=== PATIENT | female | born 1950 | race African-American/Black ===

== ENCOUNTER 2016-09-11 23:18 | Emergency (ER) | payer MEDICARE, BC ==
[~2016-09-11] VITALS: Ht 160 cm; Wt 88.0 kg
[~2016-09-11 23:18] MED LIST: ADLT ASA LOW81 MG PO; ALDACTONE25 MG PO; ALEVE220 M1 OR; ALLOPURINOL300 MG OR; ALLOPURINOL300 MG PO; ASPIRIN LOW DOS81 MG PO; AUGMENTIN875TAB PO; B12-ACTIVE1 MG PO; CARAFATE PO; CARVEDILOL25 MG PO; CITALOPRAM10 MG PO; COREG12.5 MG PO; CYANOCOBALAM1000 MCG IJ; CYANOCOBALAM1000 MCG IM; CYANOCOBALAM1000 MCG PO; D31000 UNIT PO; D32000 UNIT PO; DEXTROSE IV; DIOVAN HCT320 MG/25 OR; DIOVAN320 MG PO; DYAZIDE1 CAP OR; EXELON; FERR SULFATE325 MG PO; FERRAPLUS 90 PO; FLONASE NASAL50 MCG; FUROSEMIDE20 MG PO; HYCODAN1 ML OR; HYDROCHLOROT25 MG OR; KEFLEX500 MG PO; KLOR-CON M2020 MEQ PO; LASIX 20 MG TAB20 MG PO; LASIX 20 MG20 MG/TAB PO; LEVAQUIN750 MG PO; LEVOCETIRIZI OR; LIPITOR20 MG PO; MAG OXIDE400 MG PO; MAGNESIUM-OX400 MG PO; MEDDOSEPAK PO; METFORMIN500 MG PO; MILRINONE IV; MUCINEX600 MG OR; MUCINEX600 MG PO; NORVASC PO; OXYGEN; PERCOCET 5/325M1 TAB PO; PROTONIX20 MG PO; RANEXA500 MG PO; RANOLAZINE PO; SPIRONOLACT25 MG PO; SYMBICORT1 AE1 IN; TESSALON PER100 MG PO; TYLENOL # 31 TAB PO; VIT D PO; VITAMIN D2000 UNI1 PO; [UNRECOGNIZED DRUG - OTHER]
[2016-09-11] MEDS ORDERED: DOBUTAMINE IV (23:31)
[2016-09-11] MEDS ORDERED: SINEMET 25/1001 TAB PO (23:32)
[2016-09-11] MEDS ORDERED: VALIUM2 MG PO (23:32)
[2016-09-11] MEDS ORDERED: ONDANSETRON HCL4 MG PO (23:33)
[2016-09-12 01:20] VITALS: BP 127/71
== END 2016-09-12 01:20 | disposition home or self-care (01) ==
LOC: ED 23:18
DX: T82.528A Displacement of other cardiac and vascular devices and implants, initial encounter (principal); I11.0 Hypertensive heart disease with heart failure; I50.9 Heart failure, unspecified; Z95.810 Presence of automatic (implantable) cardiac defibrillator; Y83.8 Other surgical procedures as the cause of abnormal reaction of the patient, or of later complication, without mention of misadventure at the time of the procedure

== ENCOUNTER 2018-01-23 12:30 | Inpatient (IN) | payer MEDICARE, BC ==
[~2018-01-23] VITALS: Ht 160 cm; Wt 76.5 kg
[~2018-01-23 12:30] MED LIST changes: +DOBUTAMINE IV; +ONDANSETRON HCL4 MG PO; +SINEMET 25/1001 TAB PO; +VALIUM2 MG PO
[2018-01-23 13:27] LABS: HEMOGLOBIN 13.6 g/dl (12.0-16.0); IMMATURE GRANULOCYTES 0.3 % (0.0-5.0); MEAN CELL VOLUME 99.5 fL CALC (80.0-100.0); MEAN CORPUSCULAR HGB 32.2 pG CALC (26.0-32.0); MEAN CORPUSCULAR HGB CONC 32.4 g/L CALC (32.0-36.0); NEUT# 3.91 thou/uL (2.00-7.15); RED BLOOD COUNT 4.22 mill/uL (4.20-5.60); RED CELL DISTRI WIDTH 16.2 % (11.5-15.5)
[2018-01-23 13:48] LABS: BILIRUBIN, TOTAL 0.9 mg/dL (0.0-1.4); CREATININE 1.6 mg/dL (0.5-1.0); TOTAL PROTEIN 8.4 g/dL (6.3-8.2)
[2018-01-23 13:49] LABS: ALBUMIN 4.6 g/dL (3.2-5.0)
[2018-01-23 14:11] LABS: URINE BILIRUBIN - DIPSTICK NEGATIVE (NEGATIVE); URINE BLOOD DIPSTICK SMALL (NEGATIVE); URINE COLOR YELLOW; URINE GLUCOSE - DIPSTICK NEGATIVE (NEGATIVE); URINE KETONE TRACE mg/dL (NEGATIVE); URINE LEUK ESTERASE NEGATIVE (NEGATIVE); URINE NITRITE - DIPSTICK NEGATIVE (Negative); URINE PH 6.5 (4.5-8.0); URINE PROTEIN - DIPSTICK 100 mg/dL (NEG-TRACE); URINE UROBILINOGEN - DIPSTICK 0.2 E.U./dL (0.2)
[2018-01-23 14:16] LABS: URINE CLARITY CLEAR
[2018-01-23 14:25] LABS: INFLUENZA A NONE DETECTED (NONE DETECT); INFLUENZA B NONE DETECTED (NONE DETECT)
[2018-01-23 14:38] LABS: URINE SQUAMOUS EPITHELIAL CELL FEW EPI/hpf (0-FEW); URINE WBC 0-2 WBC/hpf (0-5)
[2018-01-23] MEDS ORDERED: OMEPRAZOLE20 MG PO (14:47)
[2018-01-23] MEDS ORDERED: MELOXICAM7.5 MG PO (14:47)
[2018-01-23] MEDS ORDERED: ISOSORB DIN30 MG PO (14:48)
[2018-01-23] MEDS ORDERED: LASIX 80 MG TAB80 M1 PO (14:48)
[2018-01-23] MEDS ORDERED: CILOSTAZOL50 MG PO (14:48)
[2018-01-23] MEDS ORDERED: PROCHLORPERAZINE5 MG PO (14:49)
[2018-01-23] MEDS ORDERED: FOLIC ACID1 MG PO (14:49)
[2018-01-23] MEDS ORDERED: CARVEDILOL3.125 MG PO (14:49)
[2018-01-23] MEDS ORDERED: K-TAB20 MEQ PO (14:50)
[2018-01-23] MEDS ORDERED: AMIODARONE200 MG PO (14:50)
[2018-01-23 19:15] VITALS: BP 165/89
[2018-01-23 21:00] VITALS: BP 141/84
[2018-01-23 22:00] VITALS: BP 174/90
[2018-01-23 23:00] VITALS: BP 152/77
[2018-01-24] VITALS (14 sets, daily range): BP systolic 149–173; BP diastolic 78–98
[2018-01-24 05:27] LABS: HEMATOCRIT 37.8 % (37.0-47.0); HEMOGLOBIN 12.8 g/dl (12.0-16.0); IMMATURE GRANULOCYTES 0.2 % (0.0-5.0); MEAN CELL VOLUME 97.9 fL CALC (80.0-100.0); MEAN CORPUSCULAR HGB 33.2 pG CALC (26.0-32.0); MEAN CORPUSCULAR HGB CONC 33.9 g/L CALC (32.0-36.0); NEUT# 3.67 thou/uL (2.00-7.15); RED BLOOD COUNT 3.86 mill/uL (4.20-5.60); RED CELL DISTRI WIDTH 15.9 % (11.5-15.5)
[2018-01-24 05:45] LABS: ALBUMIN 3.7 g/dL (3.2-5.0); BILIRUBIN, TOTAL 0.5 mg/dL (0.0-1.4); CREATININE 1.2 mg/dL (0.5-1.0); POTASSIUM 4.7 mmol/l (3.5-5.1)
[2018-01-24 05:54] LABS: TOTAL PROTEIN 6.6 g/dL (6.3-8.2)
== END 2018-01-24 16:03 | DRG 872 ==
LOC: ED 12:30 → ED-I 14:54 → ED 15:09 → ICU 15:10
PROVIDERS: Family Medicine; ADMIT Internal Medicine Nephrology; ATTEND Internal Medicine Nephrology
DX: A41.9 Sepsis, unspecified organism (principal); K80.00 Calculus of gallbladder with acute cholecystitis without obstruction; N17.9 Acute kidney failure, unspecified; I11.0 Hypertensive heart disease with heart failure; I50.9 Heart failure, unspecified; G20 Parkinson's disease; F02.80 Dementia in other diseases classified elsewhere, unspecified severity, without behavioral disturbance, psychotic disturbance, mood disturbance, and anxiety; M10.9 Gout, unspecified; M19.90 Unspecified osteoarthritis, unspecified site; K21.9 Gastro-esophageal reflux disease without esophagitis; I48.91 Unspecified atrial fibrillation; R68.0 Hypothermia, not associated with low environmental temperature; I49.9 Cardiac arrhythmia, unspecified; I73.9 Peripheral vascular disease, unspecified; Z79.899 Other long term (current) drug therapy; Z79.1 Long term (current) use of non-steroidal anti-inflammatories (NSAID)